=== PATIENT | female | born 1975 ===

== ENCOUNTER 2023-12-19 11:15 | Inpatient (IN) | payer OTHER ==
[~2023-12-19 11:15] MED LIST: OSTERA TABLET1 EACH PO; SYNTHROID100 MCG PO; SYNTHROID112 MCG PO; TYLENOL-CODEINE1 TAB PO; VIT C-BIOFLAVO1 EACH PO
[2023-12-19] MEDS ORDERED: CRESTOR (13:50)
[2023-12-27] MEDS ORDERED: CEFOXITIN SODIUM 2,000 MG VIAL IV ONE ×3 (14:33→15:15)
[2023-12-27] MEDS ORDERED: POVIDONE-IODINE 118 ML BOTT TOP ONE ×3 (14:34→15:15)
[2023-12-27] MEDS ORDERED: ROSUVASTATIN CAL5 MG (15:38)
[2023-12-27] MEDS ORDERED: RINGERS SOLUTION,LACTATED 1,000 ML IV SCH (16:45)
[2023-12-27] MEDS ORDERED: SIMETHICONE 125 MG CAPSULE PO SCH (17:00)
[2023-12-27] MEDS ORDERED: MEPERIDINE HCL/PF 50 MG/ML VIAL IV SCH (18:00)
[2023-12-27] MEDS ORDERED: PROMETHAZINE HCL 25 MG/ML AMPUL IV SCH (18:00)
[2023-12-27] MEDS ORDERED: ONDANSETRON HCL 2 MG/ML VIAL ONE (18:26)
[2023-12-27 20:53] LABS: HEMATOCRIT 35.3 % (36.0-45.00); HEMOGLOBIN 11.8 g/dL (12.0-15.00); MEAN CORPUSCULAR HEMOGLOBIN 28.4 pg (27.00-32.0); MEAN CORPUSCULAR HGB CONC 33.4 g/dl (32.0-36.0); PLATELET COUNT 167 K/uL (150-450); RED BLOOD COUNT 4.15 M/uL (4.00-6.00); RED CELL DISTRIBUTION WIDTH 13.9 % (11.5-14.5)
[2023-12-28] MEDS ORDERED: Tylenol #3 PO (09:02)
== END 2023-12-28 12:20 | disposition home or self-care (01) | DRG 743 ==
LOC: O/R 12-27 08:42 → OB/GYN 12-27 08:42 → SURH 12-27 11:15 → OB/GYN 12-27 17:03 → SURH 12-27 17:15 → OB/GYN 12-28 12:20
PROVIDERS: ADMIT Obstetrics & Gynecology; ATTEND Obstetrics & Gynecology
PROC: 0UT77ZZ Resection of Bilateral Fallopian Tubes, Via Natural or Artificial Opening (ICD-10-PCS; 2023-12-27)
PROC: 0UT27ZZ Resection of Bilateral Ovaries, Via Natural or Artificial Opening (ICD-10-PCS; 2023-12-27)
PROC: 0JQC0ZZ Repair Pelvic Region Subcutaneous Tissue and Fascia, Open Approach (ICD-10-PCS; 2023-12-27)
PROC: 0USG0ZZ Reposition Vagina, Open Approach (ICD-10-PCS; 2023-12-27)
PROC: 0TJB8ZZ Inspection of Bladder, Via Natural or Artificial Opening Endoscopic (ICD-10-PCS; 2023-12-27)
PROC: 0UT97ZZ Resection of Uterus, Via Natural or Artificial Opening (ICD-10-PCS; principal; 2023-12-27 17:15)
DX: N80.03 Adenomyosis of the uterus (principal); N72 Inflammatory disease of cervix uteri; Z20.822 Contact with and (suspected) exposure to COVID-19; D25.1 Intramural leiomyoma of uterus; N81.11 Cystocele, midline